=== PATIENT | female | born 1975 | race Caucasian/White ===

== ENCOUNTER → 2017-06-14 | Outpatient (CLI) | payer MEDICARE, OTHER ==
--- NOTE | 2017-06-14 08:51 | RAD ---
Abdominal ultrasound, 06/14/2017: History: Chronic hepatitis The gallbladder is within normal limits in size. There is no sonographic evidence of cholelithiasis. The gallbladder [place] are not thickened. The common hepatic duct is of normal caliber. No hepatic abnormality is seen. The visualized portions of the pancreas are unremarkable. The spleen is of normal size. No renal abnormality is detected. The abdominal aorta and inferior vena cava are unremarkable. No free fluid is evident in the abdomen. IMPRESSION: No significant abdominal abnormality is detected.
== END | disposition home or self-care (01) ==
LOC: US 06:40
PROVIDERS: ATTEND Family Medicine
DX: B18.2 Chronic viral hepatitis C (principal)
CPT/HCPCS: 76700